=== PATIENT | female | born 1960 ===

== ENCOUNTER 2022-07-29 16:41 | Emergency (ER) | payer MEDICARE, MEDICAID, SELFPAY ==
--- NOTE | 2022-07-29 17:15 | ED.MEDCLEAR ---
HPI - Medical Clearance General Chief complaint: General Medical Stated complaint: Medication Injection? Time Seen by Provider: 07/29/22 17:14 Source: patient History of Present Illness HPI Narrative: 61yoF with a PMHX of schizophrenia who is presenting to the ER with her daughter for a Invega injection of 156 mg. She reports she received her last injection [place] in April of 2022. She missed her May and June does because she is now residing here [place] she tried to go to [facility] today although there are no appointments until October. Therefore her daughter called [place] and they told her if she cannot get a PCP appointment and she will need to come to the ER for her injection. She denies any SI or HI or any auditory or visual hallucinations or thoughts of self injuries at this time. MD complaint: medical clearance requested Onset (ago): month(s) (2) Related Information Allergies Allergy/AdvReac Type Severity Reaction Status Date / Time olanzapine [From ZYPREXA] AdvReac Unknown DIZZINESS Unverified 03/05/20 19:43 risperidone [From RISPERDAL] AdvReac Unknown DIZZINESS Unverified 03/05/20 19:43 Review of Systems Review of Systems: Constitutional : No Fever, No Chills ENT/Mouth : No Ear Pain, No Nasal Congestion, No sore throat Eyes: No Eye Pain, No Swelling, No Redness Cardiovascular : No Chest Pain, No SOB Respiratory : No Cough, No Sputum, No Dyspnea Gastrointestinal : No ingestions, No Nausea, No Vomiting, No Diarrhea, No Hematochezia, No Melena Genitourinary : No Dysuria, No Urinary Frequency, No Hematuria Musculoskeletal : No Myalgias Skin : No Skin Lesions, No rash Neuro : No Weakness, No Numbness, No Paresthesias, No Dizziness, No Headache Psych : No Anxiety, No Depression, No SI/HI, No AVH, No thoughts of self injury Heme/Lymph: No Lymphadenopathy Endocrine : No Polyuria, No Polydipsia Yes all other systems are reviewed and are negative [facility] Past Medical History Attestation statement: The following information was validated with the patient. Source: old records reviewed and nursing notes reviewed Physical Exam Vital Signs: Vital Signs: Last Vital Signs Temp 97.9 F 07/29/22 17:16 Pulse 84 07/29/22 17:16 Resp 18 07/29/22 17:16 BP 135/51 L 07/29/22 17:16 Pulse Ox 97 07/29/22 17:16 O2 Del Method 07/29/22 17:16 BMI result Body Mass Index 29.9 vital signs have been reviewed as normal and appeared to be correct. Blood pressure normal. Heart rate normal. Respiration rate normal. Temperature normal. Oxygen saturation normal. Appearance: Alert. Oriented X3. No acute distress. Head: Normal external exam. Normocephalic. Atraumatic. No Acharya signs noted. No raccoon eyes noted Eyes: PERRLA. EOMI. Conjunctiva and sclera normal. Eyelids normal. ENT: EAC normal. TM's Normal. Pharynx normal. Uvula midline. Moist mucous membranes. No trismus noted. No drooling noted. No muffled voice noted. Neck: Normal inspection. Neck supple. FROM. No adenopathy. Thyroid Normal. No meningeal signs. No neck mass noted. CVS: Normal heart rate and rhythm. Heart sound normal. No murmurs noted. Pulses normal throughout. Respiratory: No respiratory distress. Painless inspiration. Breath sounds normal. No wheezes/rales/rhonchi noted. Chest nontender. No accessory muscle usage noted or decreased air movement noted. Abdomen: Soft and nontender. Bowel sounds normal in all 4 quadrants. No distention noted. No organomegaly noted. No visible injury noted. Back: No CVA tenderness. Full range of motion noted. Skin: Skin warm and dry. Normal skin color. Normal skin turgor. No rashes/lesions/lacerations noted. Extremities: No lower extremity edema. Extremities exhibit normal range of motion. Extremities nontender. Neuro: Oriented X 3. No motor deficit. No sensory deficit. Reflexes normal. CN's II-XII intact bilaterally? Psych: Appearance grossly normal, well-kept, mental status normal, speech and movement normal, speech clear, normal affect. Is cooperative. Normal thought process. Normal thought content. Normal good insight. Judgment good. Course Course Course Narrative: 61yoF with a PMHX of schizophrenia who is presenting to the ER with her daughter for a Invega injection of 156 mg. She reports she received her last injection [place] in April of 2022. She missed her May and June does because she is now residing here [place] she tried to go to [facility] today although there are no appointments until October. Therefore her daughter called [place] and they told her if she cannot get a PCP appointment and she will need to come to the ER for her injection. She denies any SI or HI or any auditory or visual hallucinations or thoughts of self injuries at this time. Therefore at this time will order Invega injection of 156 mg. Daughter will try to make a sooner appointment or fine another provider that she can go to for her next dose. Otherwise no additional labs or imaging indicated. Will DC home with instructions to follow-up with PCP. Patient with daughter at bedside understand agree this plan. Invega 156 mg Medical Decision Making Independent Historian Clinical information obtained from an independent historian. History obtained from or confirmed by: Other (Daughter at bedside) Discharge Plan Discharge Clinical Impression: Encounter for medication administration Patient Disposition: Home, Self-Care Instructions: Medicine Refill (ED) Referrals: Physician,Unknown J [Primary Care Provider] - 2 days (your pcp)
[2022-07-29 17:16] VITALS: BP 135/51; PULSE 84; RESP 18; TEMP 36.6; O2SAT 97; BMI 29.9
[2022-07-29] MEDS: Paliperidone Palmitate 156 MG/ML SYRINGE IM (17:40)
== END 2022-07-29 17:46 | disposition home or self-care (01) ==
PROVIDERS: Emergency Provider Emergency Medicine
DX: F20.9 Schizophrenia, unspecified (principal); Z79.899 Other long term (current) drug therapy
CPT/HCPCS: 96372; 99282; 99284; J2426